=== PATIENT | female | born 1985 | race Caucasian/White ===

== ENCOUNTER 2021-05-18 19:20 | Emergency (ER) | payer BC, SELFPAY ==
--- NOTE | ~2021-05-18 | XR_ITS ---
XR abdomen/kub 1V 05/18/2021 19:59 Indication: Left-sided abdomen pain. Procedure: KUB Comparison: No prior studies for comparison. Findings: There is a punctate left renal stone at the lower pole. Bowel gas pattern nonobstructive. L angel bases are unremarkable. No acute osseous abnormality. Impression: 1: Left nephrolithiasis. Reviewed, dictated and finalized at location A. Impression: 1: Left nephrolithiasis.
[2021-05-18 19:31] VITALS: BP 106/70; PULSE 78; RESP 20; TEMP 37.2; O2SAT 100
--- NOTE | 2021-05-18 19:41 | ED.GENADULT ---
HPI - General Adult General Chief complaint: Abdominal Pain <EBONY Andino - Last Filed: 05/23/21 23:18> Stated complaint: abd pain <EBONY Andino - Last Filed: 05/23/21 23:18> Time Seen by Provider: 05/18/21 19:35 <EBONY Andino - Last Filed: 05/23/21 23:18> Source: patient and RN notes reviewed <EBONY Andino - Last Filed: 05/23/21 23:18> Mode of arrival: ambulatory <EBONY Andino - Last Filed: 05/23/21 23:18> Limitations: no limitations <EBONY Andino - Last Filed: 05/23/21 23:18> History of Present Illness HPI narrative: 36-year-old female presents with complaints of left upper abdomen pain and nausea for the past 11 days. ?Brenda reports abdominal pain radiates into back with increased nausea with eating and drinking, and diarrhea today. ?No treatment. ?No significant pelvic pain. ?No vaginal discharge. No concerns for STDs. ?No fever or chills. ?Vomiting, last 2 days ago without blood. ?Diarrhea, last today without blood. Exacerbating factors consist of eating and drinking. ?Tolerating po intake fairly. ?Denies dysuria, hematuria, and vaginal bleeding. ?No blood in stool or constipation. Last BM today. ?No dyspnea. Denies chest pain, headache, and dizziness. ?Urine output within normal limits. The patient reports she has not been diagnosed with COVID-19. ?The patient reports she is not waiting for the results of a COVID-19 lab test. ?The patient reports she does not have weakness or fatigue. ?The patient reports she does not have a new or worsening cough. ?The patient reports she does not have any rhinorrhea, congestion, sore throat, loss of taste or smell. Denies recent traveling. ?Denies concerns for COVID-19 or exposures. ?At this time, the patient is not suspected of having COVID-19. Some parts of this dictation were generated by voice recognition software and may contain typographical and/or grammatical inaccuracies. <EBONY Andino - Last Filed: 05/23/21 23:18> Related Data Allergies/adverse reactions: Allergies Allergy/AdvReac Type Severity Reaction Status Date / Time Unable to Assess Allergy Verified 05/18/21 19:36 <EBONY Andino - Last Filed: 05/23/21 23:18> Review of Systems Review of Systems: Narrative: CONSTITUTIONAL: Denies fever, chills, sweats. EYES: Denies visual changes, redness, discharge. ENT: Denies rhinorrhea, congestion, sore throat, otalgia. CARDIOVASCULAR: Denies chest pain, palpitations, edema. RESPIRATORY: Denies dyspnea, wheezing, cough. GASTROINTESTINAL: Complains of abdominal pain, nausea, vomiting, decrease appetite, and diarrhea. GENITOURINARY: Denies dysuria, hematuria, abnormal discharge. SKIN: Denies rash or itching. MUSCULOSKELETAL: Denies acute back pain, joint pain, or myalgia. NEUROLOGIC: Denies numbness or focal weakness. PSYCHIATRIC: Denies anxiety or depression. All systems reviewed & are unremarkable except as noted in HPI and below. <EBONY Andino - Last Filed: 05/23/21 23:18> PMF Past Medical History Medical History: Medical History delivery delivered Ex-smoker for less than 1 year <EBONY Andino - Last Filed: 05/23/21 23:18> Surgical History Surgical History: Surgical History H/O section X2 History of angioplasty History of biopsy of bladder History of hysterectomy <EBONY Andino - Last Filed: 05/23/21 23:18> Family History Family History: Family History Father Alive and well Mother Alive and well <EBONY Andino - Last Filed: 05/23/21 23:18> Social History Social History: Social History Smoking status: Former smoker Tobacco type: cigarettes Second hand tobacco smoke
[2021-05-18] MEDS: ONDANSETRON INJ 4 MG/2 ML VIAL IM (19:57)
[2021-05-18] MEDS: KETOROLAC (*BKC) 60 MG/2 ML VIAL IM (19:57)
== END 2021-05-18 20:22 | disposition home or self-care (01) ==
PROVIDERS: Emergency Provider Nurse Practitioner Family
DX: N20.0 Calculus of kidney (principal); R10.12 Left upper quadrant pain; R11.2 Nausea with vomiting, unspecified; Z87.442 Personal history of urinary calculi; Z95.1 Presence of aortocoronary bypass graft; Z87.891 Personal history of nicotine dependence
CPT/HCPCS: 74018; 81003; 87077; 87086; 87088; 87186; 99213; G0463; J1885; J2405